=== PATIENT | female | born 1945 | race African-American/Black ===

== ENCOUNTER 2018-10-17 19:34 | Emergency (ER) | payer MEDICARE ==
--- NOTE | 2018-10-17 20:19 | ER Document Report ---
ED Medical Screen (RME) - General Chief Complaint: Abdominal Pain Stated Complaint: ABDOMINAL PAIN Time Seen by Provider: 10/17/18 20:04 Notes: Patient is a 73-year-old female presents to the emergency department with generalized abdominal pain. Patient denies any nausea or vomiting. States she has had a partial hysterectomy. States she know she had abdominal surgery when she was younger. States she either had her appendix removed her gallbladder removed, she is unsure which. Patient's denying any fever or dysuria. GENERAL: Alert, interacts well. No acute distress. ABDOMEN: Soft, generalized tenderness all 4 quadrants non-distended. Bowel sounds present in all 4 quadrants. I have greeted and performed a rapid initial assessment of this patient. A comprehensive ED assessment and evaluation of the patient, analysis of test re sults and completion of the medical decision making process will be conducted by additional ED providers. This medical record was dictated with voice recognizing software. There may be grammatical, syntax errors that are unintended. TRAVEL OUTSIDE OF THE [place] IN LAST 30 DAYS: No - Related Data Allergies/Adverse Reactions: No Known Allergies Allergy (Unverified 11/10/15 06:01) Past Medical History - Social History Frequency of alcohol use: Rare Drug Abuse: None - Past Medical History Cardiac Medical History: Reports: Hx Hypercholesterolemia Endocrine Medical History: Reports: Hx Diabetes Mellitus Type 2 Renal/ Medical History: Denies: Hx Peritoneal Dialysis Past Surgical History: Reports: Hx Hysterectomy Physical Exam - Vital signs Vitals: Temp Pulse Resp BP Pulse Ox 98.9 F 65 16 158/78 H 97 10/17/18 19:49 10/17/18 19:49 10/17/18 19:49 10/17/18 19:49 10/17/18 19:49 Course - Vital Signs Vital signs: Temp Pulse Resp BP Pulse Ox 98.9 F 65 16 158/78 H 97 10/17/18 19:49 10/17/18 19:49 10/17/18 19:49 10/17/18 19:49 10/17/18 19:49
[2018-10-17 20:36] LABS: ABSOLUTE BASOPHILS # (AUTO) 0.1 10^3/uL (0.0-0.2); ABSOLUTE EOSINOPHILS # (AUTO) 0.1 10^3/uL (0.0-0.6); ABSOLUTE LYMPHOCYTES (AUTO) 3.2 10^3/uL (0.5-4.7); ABSOLUTE MONOCYTES (AUTO) 0.7 10^3/uL (0.1-1.4); ABSOLUTE NEUT (AUTO) 5.4 10^3/uL (1.7-8.2); BASOPHILS % (AUTO) 0.8 % (0-2); EOSINOPHILS % (AUTO) 1.4 % (0-6); HEMATOCRIT 41.2 % (36.0-47.0); LYMPHOCYTES % (AUTO) 33.6 % (13-45); MEAN CORPUSCULAR HEMOGLOBIN 29.7 pg (27.0-33.4); MEAN CORPUSCULAR VOLUME 88 fl (80-97); MONOCYTES % (AUTO) 7.8 % (3-13); PLATELET COUNT 224 10^3/uL (150-450); RED CELL DISTRIBUTION WIDTH 13.9 % (11.5-14.0); SEGMENTED NEUTROPHILS % (AUTO) 56.4 % (42-78); TOTAL CELLS COUNTED % (AUTO) 100 %; WHITE BLOOD COUNT 9.6 10^3/uL (4.0-10.5)
[2018-10-17 20:40] LABS: APPEARANCE,URINE CLEAR; BILIRUBIN,URINE NEGATIVE (NEGATIVE); COLOR,URINE YELLOW; GLUCOSE, URINE NEGATIVE (NEGATIVE); KETONES,URINE NEGATIVE (NEGATIVE); LEUKOCYTE ESTERASE,URINE NEGATIVE (NEGATIVE); NITRITE,URINE NEGATIVE (NEGATIVE); PROTEIN,URINE NEGATIVE (NEGATIVE); URINE SPECIFIC GRAVITY 1.013; UROBILINOGEN,URINE NEGATIVE mg/dL (<2.0)
[2018-10-17 20:51] LABS: ALANINE AMINOTRANSFERASE 14 U/L (9-52); ALBUMIN 4.5 g/dL (3.5-5.0); ALKALINE PHOSPHATASE 107 U/L (38-126); ANION GAP 8 (5-19); ASPARTATE AMINO TRANSFERASE 18 U/L (14-36); BILIRUBIN,DIRECT 0.3 mg/dL (0.0-0.4); BILIRUBIN,TOTAL 0.4 mg/dL (0.2-1.3); BLOOD UREA NITROGEN 20 mg/dL (7-20); CALCIUM 10.3 mg/dL (8.4-10.2); CARBON DIOXIDE 28 mmol/L (22-30); CHLORIDE 106 mmol/L (98-107); GLUCOSE 105 mg/dL (75-110); LIPASE 1907.2 U/L (23-300); POTASSIUM 4.6 mmol/L (3.6-5.0); TOTAL PROTEIN 7.8 g/dL (6.3-8.2)
--- NOTE | 2018-10-17 22:23 | RADIOLOGY REPORT (SQ) ---
CT ABDOMEN PELVIS WITH IV CONTRAST HISTORY: Abdominal pain. COMPARISON: None. TECHNIQUE: CT scan of the abdomen and pelvis was performed with IV contrast. This exam was performed according to our departmental dose-optimization program, which includes automated exposure control, adjustment of the mA and/or kV according to patient size and/or use of iterative reconstruction technique. FINDINGS: The lung bases are clear. No pleural or pericardial effusions. There is no hiatal hernia. The liver, gallbladder, spleen, pancreas, adrenal glands, and kidneys are unremarkable without hydronephrosis or urinary stones. There has been a prior hysterectomy. There are scattered colonic diverticula without surrounding inflammatory changes. The appendix is not seen. No small bowel obstruction. There are a few loops of small bowel in the left lower quadrant which are mildly dilated suggesting enteritis. No intraperitoneal free fluid or free air is seen. The aorta is normal caliber and contains atherosclerotic calcifications. No acute bony findings are appreciated. There is no pathologic body wall hernia. IMPRESSION: Query enteritis of distal small bowel loops in the left hemiabdomen.
--- NOTE | 2018-10-17 23:32 | ER Document Report ---
ED General - General Chief Complaint: Abdominal Pain Stated Complaint: ABDOMINAL PAIN Time Seen by Provider: 10/17/18 20:04 Primary Care Provider: KRYSTYNA ALBRIGHT MD [Primary Care Provider] - Follow up in 3-5 days Notes: Patient is a 73-year-old female with past medical history of diabetes, hypertension, hyperlipidemia who presents with 4 days of generalized abdominal cramping with associated nausea but no vomiting. Describes the pain as being a constant, cramping, generalized aching pain that she regards is mild to moderate in intensity. Worsened by attempts at eating. Nothing improves the pain although she notes that since coming to the emergency department her pain has effectively resolved. Denies a history of similar symptoms in the past. Notes a prior surgical history of a hysterectomy and possibly an appendectomy. Has not had fever or constitutional symptoms. Has not seen her primary care ori luna regarding today's concerns. TRAVEL OUTSIDE OF THE [place] IN LAST 30 DAYS: No - Related Data Allergies/Adverse Reactions: No Known Allergies Allergy (Unverified 11/10/15 06:01) Past Medical History - General Information source: Patient - Social History Smoking Status: Current Every Day Smoker Frequency of alcohol use: Rare Drug Abuse: None Lives with: Family Family History: Reviewed & Not Pertinent Patient has suicidal ideation: No Patient has homicidal ideation: No - Past Medical History Cardiac Medical History: Reports: Hx Hypercholesterolemia Endocrine Medical History: Reports: Hx Diabetes Mellitus Type 2 Renal/ Medical History: Denies: Hx Peritoneal Dialysis Past Surgical History: Reports: Hx Hysterectomy Review of Systems - Review of Systems Notes: Constitutional: Negative for fever. HENT: Negative for sore throat. Eyes: Negative for visual changes. Cardiovascular: Negative for chest pain. Respiratory: Negative for shortness of breath. Gastrointestinal: Positive for abdominal cramping and nausea Genitourinary: Negative for dysuria. Musculoskeletal: Negative for back pain. Skin: Negative for rash. Neurological: Negative for headaches, weakness or numbness. 10 point ROS negative except as marked above and in HPI. Physical Exam - Vital signs Vitals: Temp Pulse Resp BP Pulse Ox 98.9 F 65 16 158/78 H 97 10/17/18 19:49 10/17/18 19:49 10/17/18 19:49 10/17/18 19:49 10/17/18 19:49 Interpretation: Hypertensive Notes: PHYSICAL EXAMINATION: GENERAL: Well-appearing, well-nourished and in no acute distress. HEAD: Atraumatic, normocephalic. EYES: Pupils equal round and reactive to light, extraocular movements intact, sclera anicteric, conjunctiva are normal. ENT: nares patent, oropharynx clear without exudates. Moist mucous membranes. NECK: Normal range of motion, supple without lymphadenopathy LUNGS: Breath sounds clear to auscultation bilaterally and equal. No wheezes rales or rhonchi. HEART: Regular rate and rhythm without murmurs ABDOMEN: Soft, nontender, normoactive bowel sounds. No guarding, no rebound. No masses appreciated. EXTREMITIES: Normal range of motion, no pitting or edema. No cyanosis. NEUROLOGICAL: No focal neurological deficits. Moves all extremities spontaneously and on command. PSYCH: Normal mood, normal affect. SKIN: Warm, Dry, normal turgor, no rashes or lesions noted. Course - Re-evaluation Re-evalutation: 10/17/18 23:30 Patient presents with clinical history and exam and labs to suggest acute pa ncreatitis. Lipase is elevated today. Exact etiology of pink otitis appears unclear although no evidence of biliary pathology on CT imaging of the abdomen pelvis and patient does admit to drinking wine prior to the onset of her symptoms several days ago. Since arriving here in the emergency department, the patient reports that her symptoms have completely resolved and is currently asymptomatic. She has no focal abdominal tenderness on exam. At time of arrival, patient's vitals are within normal limits, they are well-appearing and in no acute distress. The patient has tolerated oral intake without difficulty and has not had any vomiting with today's presentation. Patient is an appropri ate candidate for outpatient management of this acute episode of pancreatitis using oral pain medications, antiemetics, and recommendations for a clear liquid diet until pain has resolved. At this time will discharge with return precautions and follow-up recommendations. Verbal discharge instructions given a the bedside and opportunity for questions given. Medication warnings reviewed. Patient is in agreement with this plan and has verbalized understanding of return precautions and the need for primary care follow-up in the next 24-72 hours. - Vital Signs Vital signs: Temp Pulse Resp BP Pulse Ox 97.8 F 59 L 17 166/77 H 97 10/17/18 23:38 10/17/18 23:38 10/17/18 23:38 10/17/18 23:38 10/17/18 23:38 - Laboratory Result Diagrams: 10/17/18 20:14 10/17/18 20:14 Laboratory results interpreted by me: 10/17/18 10/17/18 20:14 20:14 Est GFR ( Amer) 54 L Est GFR (Non-Af Amer) 45 L Calcium 10.3 H Lipase 1907.2 H Urine Blood SMALL H - Diagnostic Test Radiology reviewed: Reports reviewed Discharge - Discharge Clinical Impression: Generalized abdominal pain Pancreatitis Qualifiers: Chronicity: acute Pancreatitis type: unspecified pancreatitis type Acute pancreatitis complication: no infection or necrosis Qualified Code(s): K85.90 - Acute pancreatitis without necrosis or infection, unspecified Condition: Good Disposition: HOME, SELF-CARE Additional Instructions: You were seen today for pancreatitis. Please avoid alcohol in any quantity in the future as this could cause a recurrence of your pancreatitis. Please drink plenty of fluids over the next several days and try to avoid food ingestion until your pain is resolved. Please return to the emergency department immediately if you develop persistent vomiting that prohibits you from taking your medications or keeping fluids down, you develop a fever of greater than 101F, you have worsening pain, you become confused, you become short of breath, or have any other symptoms that are worrisome to you. Please follow-up with your primary care doctor in the next 24-48 hours. Referrals: KRYSTYNA ALBRIGHT MD [Primary Care Provider] - Follow up in 3-5 days
[2018-10-17 23:57] VITALS: BP 166/77
== END 2018-10-17 23:40 | disposition home or self-care (01) ==
LOC: ER 19:34
DX: K85.90 Acute pancreatitis without necrosis or infection, unspecified (principal); I10 Essential (primary) hypertension; E78.5 Hyperlipidemia, unspecified; E11.9 Type 2 diabetes mellitus without complications; F17.200 Nicotine dependence, unspecified, uncomplicated; Z90.710 Acquired absence of both cervix and uterus
CPT/HCPCS: 36415; 74177; 80053; 81001; 83690; 85025; 99284